=== PATIENT | female | born 1940 | race Hispanic/Latino ===

== ENCOUNTER 2021-04-20 14:02 | Emergency (ER) | payer OTHER, MEDICARE ==
[~2021-04-20] VITALS: Ht 160 cm; Wt 74.8 kg
[2021-04-20 14:36] VITALS: BP 127/52
[2021-04-20] MEDS ORDERED: TRAM50TA2 PO (15:26)
[2021-04-20] MEDS ORDERED: LIDOP TD (15:26)
== END 2021-04-20 17:55 | disposition home or self-care (01) ==
LOC: EDH 14:05
DX: S22.31XA Fracture of one rib, right side, initial encounter for closed fracture (principal); M25.551 Pain in right hip; M25.552 Pain in left hip; I10 Essential (primary) hypertension; E11.9 Type 2 diabetes mellitus without complications; Z90.49 Acquired absence of other specified parts of digestive tract; Z98.890 Other specified postprocedural states; Z88.5 Allergy status to narcotic agent; Z88.6 Allergy status to analgesic agent; Z88.8 Allergy status to other drugs, medicaments and biological substances; W18.39XA Other fall on same level, initial encounter; Y93.89 Activity, other specified; Y92.89 Other specified places as the place of occurrence of the external cause; Y99.8 Other external cause status
CPT/HCPCS: 71100; 72170

== ENCOUNTER 2021-07-20 19:35 | Inpatient (IN) | payer OTHER, MEDICARE ==
[~2021-07-20] VITALS: Ht 172.7 cm; Wt 68.5 kg
[~2021-07-20 19:35] MED LIST: LIDOP TD; TRAM50TA2 PO
[2021-07-20] MEDS ORDERED: ONDANSETRON 4MG INJ ONE (19:57)
[2021-07-20] MEDS ORDERED: MORPHINE 2 MG SYG ONE (19:57)
[2021-07-20] MEDS ORDERED: MORPHINE 2 MG SYG IVP ONE (20:00)
[2021-07-20] MEDS ORDERED: ONDANSETRON 4MG INJ IVP ONE (20:00)
[2021-07-20 20:37] LABS: BASOPHILS % (AUTO) 0.7 % (0.0-5.0); EOSINOPHILS % (AUTO) 0.4 % (0.0-8.0); HEMATOCRIT 39.6 % (36-48); LYMPHOCYTES % (AUTO) 14.4 % (21.0-51.0); MEAN CORPUSCULAR HEMOGLOBIN 27.1 pg (27.0-33.0); MEAN CORPUSCULAR HGB CONC 32.1 g/dL (32.0-36.0); MEAN CORPUSCULAR VOLUME 84.4 fL (79-99); MONOCYTES % (AUTO) 7.1 % (3.0-13.0); NEUTROPHILS % (AUTO) 76.3 % (40.0-77.0); PLATELET COUNT (AUTO) 408 K/uL (130-400); RED BLOOD CELL COUNT(AUTO) 4.69 MIL/uL (4.00-5.50); RED CELL DISTRIBUTION WIDTH 13.9 % (11.0-15.5); WHITE BLOOD COUNT (AUTO) 11.3 K/uL (4.8-10.8)
[2021-07-20 20:38] LABS: APPEARANCE,URINE Turbid (CLEAR); BILIRUBIN,URINE Negative (NEGATIVE); COLOR,URINE Yellow (YELLOW); GLUCOSE, URINE (UA) >=1000 mg/dL (NEGATIVE); KETONES,URINE Negative (NEGATIVE); LEUKOCYTE ESTERASE ,URINE Moderate (NEGATIVE); NITRATE,URINE Negative (NEGATIVE); OCCULT BLOOD,URINE Large (NEGATIVE); PROTEIN,URINE POS 2+ mg/dL (NEGATIVE); UROBILINOGEN,URINE 0.2 mg/dL (0.2-1.0)
[2021-07-20 20:49] LABS: BACTERIA,URINE Few /HPF (None Seen); RBC,URINE None Seen /HPF (0-1); SQUAMOUS EPITHELIAL CELL,UR None Seen /HPF (0-2); WBC,URINE >100 /HPF (0-1)
[2021-07-20 20:51] LABS: ALBUMIN 3.1 g/dL (3.5-5.0); BILIRUBIN,TOTAL 0.3 mg/dL (0.2-1.0); CREATININE 1.2 mg/dL (0.5-1.5); POTASSIUM 4.6 mmol/L (3.5-5.1); TOTAL PROTEIN, SERUM 8.2 g/dL (6.0-8.3)
[2021-07-20] MEDS ORDERED: CEFTRIAXONE 1G VIAL IVP ONE (21:00)
[2021-07-20 23:00] VITALS: BP 120/59
[2021-07-20] MEDS: ONDANSETRON 4MG INJ IVP PRN (23:32)
[2021-07-20] MEDS: MORPHINE 2 MG SYG IVP PRN (23:32)
[2021-07-21] VITALS (27 sets, daily range): BP systolic 103–136; BP diastolic 47–75
[2021-07-21] MEDS: ENOXAPARIN SODIUM 30 MG/0.3 ML SQ SCH (09:00)
[2021-07-21] MEDS ORDERED: LEVOFLOXACIN 500 MG/D5W 100 ML 200 ML ONE (10:02)
[2021-07-21] MEDS ORDERED: ROCURONIUM 10MG/1ML SYR 10 MG/ML ML ONE (10:10)
[2021-07-21] MEDS ORDERED: MIDAZOLAM HCL 1 MG/ML 2ML VIAL ONE (10:10)
[2021-07-21] MEDS ORDERED: PROPOFOL 10 MG/ML 20ML VIAL IV ONE (10:10)
[2021-07-21] MEDS ORDERED: FENTANYL CITRATE PF 50 MCG/1 ML 2ML VIAL ONE (10:11)
[2021-07-21] MEDS ORDERED: ROPIVACAINE 0.5% 5MG/ML 30ML IJ ONE (10:16)
[2021-07-21] MEDS ORDERED: LIDOCAINE HCL MPF 1% 5ML VIAL ONE (10:16)
[2021-07-21] MEDS ORDERED: CEFAZOLIN SODIUM 1 GM VIAL ONE (10:58)
[2021-07-21] MEDS ORDERED: NEOSTIGMINE 5MG/5ML SYR IV ONE (11:25)
[2021-07-21] MEDS ORDERED: GLYCOPYRROLATE 1 MG/5 ML SYRINGE ONE (11:25)
[2021-07-21] MEDS: INSULIN HUMULIN R 100 UNIT/ML 3ML SQ SCH ×3 (11:30→19:55)
[2021-07-21] MEDS ORDERED: MEPERIDINE-PF 25 MG/ML SYG ONE (12:22)
[2021-07-21] MEDS: CEFAZOLIN SODIUM 1 GM VIAL IVP SCH (19:47)
[2021-07-21] MEDS: ONDANSETRON 4MG INJ IVP PRN (19:53)
[2021-07-21] MEDS: MORPHINE 2 MG SYG IVP PRN (19:54)
[2021-07-21] MEDS ORDERED: CEFTRIAXONE 1G VIAL IVP SCH (21:00)
[2021-07-22] MEDS: CEFAZOLIN SODIUM 1 GM VIAL IVP SCH (03:10)
[2021-07-22 03:32] LABS: HEMATOCRIT 32.2 % (36-48); MEAN CORPUSCULAR HEMOGLOBIN 27.7 pg (27.0-33.0); MEAN CORPUSCULAR HGB CONC 32.3 g/dL (32.0-36.0); MEAN CORPUSCULAR VOLUME 85.6 fL (79-99); RED BLOOD CELL COUNT(AUTO) 3.76 MIL/uL (4.00-5.50); RED CELL DISTRIBUTION WIDTH 14.2 % (11.0-15.5); WHITE BLOOD COUNT (AUTO) 11.2 K/uL (4.8-10.8)
[2021-07-22 03:39] VITALS: BP 119/55
[2021-07-22 04:03] LABS: ALBUMIN 2.2 g/dL (3.5-5.0); BILIRUBIN,TOTAL 0.2 mg/dL (0.2-1.0); POTASSIUM 4.3 mmol/L (3.5-5.1); TOTAL PROTEIN, SERUM 6.5 g/dL (6.0-8.3)
[2021-07-22 06:31] VITALS: BP 118/56
[2021-07-22] MEDS: INSULIN HUMULIN R 100 UNIT/ML 3ML SQ SCH ×4 (06:42→20:26)
[2021-07-22] MEDS: ONDANSETRON 4MG INJ IVP PRN (07:46)
[2021-07-22] MEDS: ENOXAPARIN SODIUM 30 MG/0.3 ML SQ SCH (08:54)
[2021-07-22] MEDS: LEVOFLOXACIN 750 MG/D5W 150 ML 150 ML IV SCH (08:55)
[2021-07-22] MEDS ORDERED: LEVOFLOXACIN 750 MG/D5W 150 ML 150 ML IV SCH (09:00)
[2021-07-22 11:54] VITALS: BP 126/41
[2021-07-22] MEDS ORDERED: TRAMADOL HCL 50 MG TABLET ONE (13:30)
[2021-07-22 16:00] VITALS: BP 125/65
[2021-07-22 19:59] VITALS: BP 130/64
[2021-07-22] MEDS: DOCUSATE SODIUM 100 MG CAP PO SCH (20:24)
[2021-07-22] MEDS: TRAMADOL HCL 50 MG TABLET PO PRN (20:25)
[2021-07-22 23:15] VITALS: BP 97/54
[2021-07-23 03:27] VITALS: BP 112/59
[2021-07-23 03:28] LABS: BASOPHILS % (AUTO) 0.5 % (0.0-5.0); EOSINOPHILS % (AUTO) 1.2 % (0.0-8.0); HEMATOCRIT 29.9 % (36-48); MEAN CORPUSCULAR HEMOGLOBIN 27.3 pg (27.0-33.0); MEAN CORPUSCULAR HGB CONC 31.8 g/dL (32.0-36.0); MEAN CORPUSCULAR VOLUME 85.9 fL (79-99); MONOCYTES % (AUTO) 7.8 % (3.0-13.0); NEUTROPHILS % (AUTO) 66.7 % (40.0-77.0); PLATELET COUNT (AUTO) 278 K/uL (130-400); RED BLOOD CELL COUNT(AUTO) 3.48 MIL/uL (4.00-5.50); RED CELL DISTRIBUTION WIDTH 14.3 % (11.0-15.5); WHITE BLOOD COUNT (AUTO) 11.7 K/uL (4.8-10.8)
[2021-07-23 03:45] LABS: BILIRUBIN,TOTAL 0.2 mg/dL (0.2-1.0); CREATININE 0.9 mg/dL (0.5-1.5); POTASSIUM 4.5 mmol/L (3.5-5.1); TOTAL PROTEIN, SERUM 6.1 g/dL (6.0-8.3)
[2021-07-23] MEDS: INSULIN HUMULIN R 100 UNIT/ML 3ML SQ SCH ×4 (05:50→21:00)
[2021-07-23 07:30] VITALS: BP 126/80
[2021-07-23] MEDS: DOCUSATE SODIUM 100 MG CAP PO SCH ×2 (07:48→21:00)
[2021-07-23] MEDS: TRAMADOL HCL 50 MG TABLET PO PRN ×2 (07:48→13:49)
[2021-07-23] MEDS: LEVOFLOXACIN 750 MG/D5W 150 ML 150 ML IV SCH (07:50)
[2021-07-23] MEDS: ENOXAPARIN SODIUM 30 MG/0.3 ML SQ SCH (07:50)
[2021-07-23] MEDS ORDERED: LINA1TAB3 PO (08:58)
[2021-07-23] MEDS ORDERED: ATOR10 PO (08:58)
[2021-07-23] MEDS ORDERED: LISI40TA9 PO (08:58)
[2021-07-23] MEDS ORDERED: METO-408 PO (08:58)
[2021-07-23] MEDS ORDERED: LEVO50TA4 PO (08:58)
[2021-07-23] MEDS ORDERED: TRAM50TA4 PO (08:58)
[2021-07-23] MEDS ORDERED: AMLO5TAB4 PO (08:58)
[2021-07-23] MEDS ORDERED: DAPA10TA PO (08:58)
[2021-07-23] MEDS ORDERED: MELO10CA3 PO (08:58)
[2021-07-23 11:00] VITALS: BP 103/51
[2021-07-23 16:00] VITALS: BP 128/56
[2021-07-23] MEDS: ONDANSETRON 4MG INJ IVP PRN (16:52)
[2021-07-23 20:00] VITALS: BP 113/61
[2021-07-23] MEDS: [UNRECOGNIZED DRUG - OTHER] PO SCH (21:00)
[2021-07-23] MEDS: ATORVASTATIN 10 MG TABLET PO SCH (21:00)
[2021-07-24] VITALS (7 sets, daily range): BP systolic 107–135; BP diastolic 53–67
[2021-07-24] MEDS: INSULIN HUMULIN R 100 UNIT/ML 3ML SQ SCH ×4 (06:15→20:28)
[2021-07-24] MEDS: LEVOTHYROXINE 50 MCG TABLET PO SCH (07:50)
[2021-07-24] MEDS: TRAMADOL HCL 50 MG TABLET PO PRN ×2 (07:50→18:13)
[2021-07-24] MEDS: DOCUSATE SODIUM 100 MG CAP PO SCH ×2 (07:50→20:31)
[2021-07-24] MEDS: AMLODIPINE 5 MG TAB PO SCH (08:52)
[2021-07-24] MEDS: LISINOPRIL 40 MG TABLET PO SCH (08:52)
[2021-07-24] MEDS: METOPROLOL SUCCINATE 50 MG TAB.SR.24H PO SCH (08:53)
[2021-07-24] MEDS: LEVOFLOXACIN 750 MG/D5W 150 ML 150 ML IV SCH (08:53)
[2021-07-24] MEDS: ENOXAPARIN SODIUM 30 MG/0.3 ML SQ SCH (08:54)
[2021-07-24] MEDS: **HM** FARXIGA 10MG PO SCH (09:00)
[2021-07-24] MEDS: [UNRECOGNIZED DRUG - OTHER] PO SCH ×2 (09:00→20:33)
[2021-07-24] MEDS ORDERED: LACTULOSE 20 GM/30 ML UDCUP ONE (19:15)
[2021-07-24] MEDS ORDERED: LACTULOSE 20 GM/30 ML UDCUP PR SCH (19:30)
[2021-07-24] MEDS: ATORVASTATIN 10 MG TABLET PO SCH (20:31)
[2021-07-25 04:10] VITALS: BP 118/68
[2021-07-25] MEDS: TRAMADOL HCL 50 MG TABLET PO PRN ×2 (05:12→08:37)
[2021-07-25] MEDS: LEVOTHYROXINE 50 MCG TABLET PO SCH ×2 (06:15→08:35)
[2021-07-25] MEDS: INSULIN HUMULIN R 100 UNIT/ML 3ML SQ SCH (06:15)
[2021-07-25 07:10] VITALS: BP 141/63
[2021-07-25] MEDS: DOCUSATE SODIUM 100 MG CAP PO SCH (08:34)
[2021-07-25] MEDS: AMLODIPINE 5 MG TAB PO SCH (08:34)
[2021-07-25] MEDS: LISINOPRIL 40 MG TABLET PO SCH (08:35)
[2021-07-25] MEDS: METOPROLOL SUCCINATE 50 MG TAB.SR.24H PO SCH (08:36)
[2021-07-25] MEDS ORDERED: LACTULOSE 20 GM/30 ML UDCUP PR SCH (09:00)
[2021-07-25] MEDS: ENOXAPARIN SODIUM 30 MG/0.3 ML SQ SCH (09:00)
[2021-07-25] MEDS: **HM** FARXIGA 10MG PO SCH (09:00)
[2021-07-25] MEDS: [UNRECOGNIZED DRUG - OTHER] PO SCH (09:00)
[2021-07-25] MEDS ORDERED: LEVOFLOXACIN 500 MG TABLET PO SCH (09:00)
[2021-07-25] MEDS ORDERED: RIVAROXABAN 2.5 MG TABLET PO SCH (09:00)
[2021-07-25 11:10] VITALS: BP 126/55
== END 2021-07-25 15:44 | DRG 481 ==
LOC: EDH 19:35 → EDHIP 20:48 → 4BH 22:39
PROVIDERS: ADMIT Internal Medicine; ATTEND Internal Medicine
PROC: 0QS606Z Reposition Right Upper Femur with Intramedullary Internal Fixation Device, Open Approach (ICD-10-PCS; principal; 2021-07-21 10:00)
PROC: 3E0T3BZ Introduction of Anesthetic Agent into Peripheral Nerves and Plexi, Percutaneous Approach (ICD-10-PCS; 2021-07-21 10:00)
DX: S72.141A Displaced intertrochanteric fracture of right femur, initial encounter for closed fracture (principal); N39.0 Urinary tract infection, site not specified; S72.121A Displaced fracture of lesser trochanter of right femur, initial encounter for closed fracture; I10 Essential (primary) hypertension; Z96.659 Presence of unspecified artificial knee joint; E78.5 Hyperlipidemia, unspecified; Z20.822 Contact with and (suspected) exposure to COVID-19; Z88.8 Allergy status to other drugs, medicaments and biological substances; E11.9 Type 2 diabetes mellitus without complications; W18.39XA Other fall on same level, initial encounter; Y93.89 Activity, other specified; Y92.89 Other specified places as the place of occurrence of the external cause; Y99.8 Other external cause status
CPT/HCPCS: 36415; 73502; 73503; 80053; 81001; 82948; 85025; 85027; 86850; 86900; 86901; 87077; 87088; 87186; 87635; 93005; 97039; C9803; G0378; J0690; J0696; J1650; J1815; J1956; J2175; J2250; J2405; J2704; J2710; J2795; J3010; J3490